=== PATIENT | female | born 1950 | race Caucasian/White ===

== ENCOUNTER → 2019-03-18 | Outpatient (CLI) | payer OTHER, MEDICARE ==
[~2019-03-18] MED LIST: CALCIUM 500 +1 EAC5 PO; CENTRUM SILVER1 EAC4 PO; HYDROCODONE-AP1 EAC6 PO; LOTREL 10-20 M1 EACH; ONDANSETRON HCL4 M2; TAMSULOSIN HCL0.4 MG
== END ==
LOC: SJCVC 15:13
DX: I08.0 Rheumatic disorders of both mitral and aortic valves (principal); I10 Essential (primary) hypertension; R06.02 Shortness of breath

== ENCOUNTER → 2019-04-07 | Outpatient (CLI) | payer OTHER | LOC: CAT 10:00 | DX: Z13.6 Encounter for screening for cardiovascular disorders (principal); I25.10 Atherosclerotic heart disease of native coronary artery without angina pectoris; E78.00 Pure hypercholesterolemia, unspecified ==

== ENCOUNTER → 2019-04-19 | Outpatient (CLI) | payer OTHER, MEDICARE | LOC: SJCVCIMAG 10:50 | DX: I08.3 Combined rheumatic disorders of mitral, aortic and tricuspid valves (principal); I10 Essential (primary) hypertension ==

== ENCOUNTER → 2020-05-10 | Outpatient (CLI) | payer OTHER, MEDICARE | LOC: SJCVC 14:44 | PROVIDERS: ATTEND Internal Medicine Cardiovascular Disease | DX: R94.31 Abnormal electrocardiogram [ECG] [EKG] (principal); E78.00 Pure hypercholesterolemia, unspecified; I10 Essential (primary) hypertension; I49.9 Cardiac arrhythmia, unspecified; I08.0 Rheumatic disorders of both mitral and aortic valves; Z90.49 Acquired absence of other specified parts of digestive tract; Z98.890 Other specified postprocedural states; Z79.899 Other long term (current) drug therapy; Z82.49 Family history of ischemic heart disease and other diseases of the circulatory system ==

== ENCOUNTER → 2020-05-19 | Outpatient (CLI) | payer OTHER, MEDICARE | LOC: RAD 08:45 | PROVIDERS: ATTEND Nurse Practitioner | DX: M54.16 Radiculopathy, lumbar region (principal); M48.061 Spinal stenosis, lumbar region without neurogenic claudication; M41.86 Other forms of scoliosis, lumbar region ==

== ENCOUNTER → 2020-12-27 | Outpatient (CLI) | payer OTHER, MEDICARE | LOC: SJCVC 15:31 | PROVIDERS: ATTEND Internal Medicine Cardiovascular Disease | DX: I10 Essential (primary) hypertension (principal); E78.00 Pure hypercholesterolemia, unspecified; I38 Endocarditis, valve unspecified; Z72.89 Other problems related to lifestyle; Z79.899 Other long term (current) drug therapy ==